=== PATIENT | female | born 1975 | race Caucasian/White ===

== ENCOUNTER 2016-08-01 07:35 | Inpatient (IN) | payer OTHER ==
[~2016-08-01] VITALS: Ht 162.6 cm; Wt 94.3 kg
[2016-08-01] MEDS ORDERED: Methylergonovine 0.2 mg/mL Inj IM PRN ×2 (07:50→15:55)
[2016-08-01] MEDS ORDERED: Carboprost 250 mCg/mL Inj IM PRN ×2 (07:50→15:55)
[2016-08-01] MEDS ORDERED: Sodium Chloride LOK Flush 10 mL Syringe IVFLUSH PRN (07:50)
[2016-08-01] MEDS ORDERED: fentaNYL-PF 50 mCg/mL 2 mL Inj IVPUSH PRN (07:50)
[2016-08-01] MEDS ORDERED: Oxytocin 30 Units/500 mL LR 30 UNITS in IV Premix 1 EACH IV PRN ×3 (07:50→15:55)
[2016-08-01] MEDS ORDERED: Hemorrhage Kit, Post Partum XX ONE ×2 (07:50→15:55)
[2016-08-01] MEDS ORDERED: Oxytocin 10 Unit/mL Inj IM PRN ×2 (07:50→15:55)
[2016-08-01] MEDS ORDERED: Ondansetron 2 mg/mL 2 mL Inj IVPUSH PRN ×2 (07:50→11:30)
[2016-08-01] MEDS: Lactated Ringer's 1,000 ML IV PRN ×2 (08:34→10:24)
[2016-08-01 08:50] LABS: Mean Corpuscular Hemoglobin 31.1 pg (27.0-35.0); Mean Corpuscular Volume 92.6 fL (81-100)
[2016-08-01] MEDS ORDERED: fentaNYL 2 mCg/mL-Bupivicaine 0.125% 100 mL Premix EPIDURAL ONE (11:03)
[2016-08-01] MEDS ORDERED: Lactated Ringer's 500 ML IV ONE (11:26)
[2016-08-01] MEDS ORDERED: Lactated Ringer's 1,000 ML IV SCH (11:26)
--- NOTE | 2016-08-01 11:26 | PCM.HPANE ---
Patient Data Surgeon Admitting Provider:Ashlyn Thurman MD Attending Provider:Ashlyn Thurman MD Primary Care Physician:Dagmar Leon MD Other Provider:Jessie Balderas Anesthesia Reason for Visit Induction INDUCTION Ht/WT & BMI Body Mass Index Allergies Coded Allergies: amoxicillin (Verified Allergy, Intermediate, Hives, 08/01/16) erythromycin base (Verified Allergy, Intermediate, Nausea,Vomiting, 08/01/16 ) Past Anesthesia History Anesthesia History: Denies:: Abnormal Airway, Anesthesia Reactions History History of ENT Problems?: No HEENT History: Denies:: Abnormal Airway Denture Type: None Teeth Condition: Within Normal Limits Hx of Heart Problems?: No Cardiovascular History: Denies:: Coronary Artery Disease Hx of Respiratory Problem?: No Respiratory History: Denies:: Asthma Hx Neurologic Problems?: No Hx of GI Problems?: No Hx of Problems?: No Female Hx: Positive for:: Currently Hx Musculoskeletal Problems?: No Hx Surgeries?: No Smoking Status: Former Smoker Stop/Bang P-Blood Pressure: treated: No B- Body Mass Index > 35 kg/m2: No A- Age over 50: No N- Neck Large Circumference: No G- Gender Male: No GRAHAM Risk Assessment: Low Risk, <3 Yes Risk Assessment Category Category 1A: Patient has history of documented sleep apnea, and HAS NOT received any narcotic, sedative or anesthesia administration during this stay. Category 1B: Patient has history of documented sleep apnea, and HAS received any narcotic , sedative or anesthesia administration during this stay Category 2: Patient has SUSPECTED Obstructive Sleep Apnea, and HAS received any narcotic , sedative or anesthesia administration during this stay. Category 3: Patient has SUSPECTED Obstructive Sleep Apnea and HAS NOT received narcotic, sedative or anesthesia administration during this stay. Category 4: Outpatient in Procedural Areas with known sleep apnea or who screen positive for High Risk via the STOP/BANG questionnaire. Exam Exam General Appearance: Alert, Oriented X3, Cooperative, No Acute Distress HEENT/AIRWAY: MP 2 Lungs: Clear to Auscultation, Normal Air Movement Heart: Exam Unremarkable, Regular Rate/Rhythm, No Murmurs/Rubs/Gallops Meds/Labs/Diagnostics Labs Test 08/01/16 08:38 White Blood Count 6.6th/mm3 (3.8-10.1) Red Blood Count 4.08mil/mm3 (3.90-5.20) Hemoglobin 12.7g/dL (12.0-15.6) Hematocrit 37.8% (35.0-46.0) Mean Corpuscular Volume 92.6fL (81-100) Mean Corpuscular Hemoglobin 31.1pg (27.0-35.0) Mean Corpuscular Hemoglobin Concent 33.6% (32.0-37.0) Red Cell Distribution Width 14.5% (12.3-15.4) Platelet Count 210bil/L (150-400) Plan Impression Patient chart reviewed, patient interviewed and anesthestic plan with risks, benefits, and alternatives discussed, and informed consent obtained. NPO per Anesth. Guidelines: Yes ASA Physical Status: ASA2 Mod Systemic Disease Anesthetic Plan: Epidural Bene/Risks/Altern/Consents: Yes HP Complete Prior to Induction: Yes Keith Malagon MD Aug 01, 2016 11:26
[2016-08-01] MEDS ORDERED: EPHEDrine Sulfate 50 mg/mL Inj IVPUSH PRN (11:30)
[2016-08-01] MEDS ORDERED: Atropine 1 mg/10 mL (Code) Syringe IVPUSH PRN (11:30)
[2016-08-01] MEDS ORDERED: fentaNYL 2 mCg/mL-Bupiv 0.125% 100 ML EPIDURAL SCH (11:30)
[2016-08-01] MEDS: Lactated Ringer's 1,000 ML IV SCH ×2 (15:51→19:14)
[2016-08-01] MEDS ORDERED: LANOlin HPA 7 Gm Ointment TOPICAL PRN (15:55)
[2016-08-01] MEDS ORDERED: Benzocaine (Dermoplast) 20% 60 Gm Spray TOPICAL PRN (15:55)
[2016-08-01] MEDS ORDERED: Witch Hazel-Glycerin Pads TOPICAL PRN (15:55)
--- NOTE | 2016-08-01 16:01 | PCM.HPOB ---
Subjective Date of Service: Aug 01, 2016 Referring Provider: Admitting Physician: Ashlyn Thurman MD Primary Care Physician: Attending Physician: Ashlyn Thurman MD History of Present History of Present Illness 40 y/o -0-0-2 at 39 weeks gestation who presented for a routine visit with elevated BP. She was complaining of contractions and her BP was mildly elevated. I discussed induction of labor for elevated BP and AMA. I have reviewed the risks of induction today and consents were signed. Her to date has been otherwise uncomplicated. Allergy Coded Allergies: amoxicillin (Verified Allergy, Intermediate, Hives, 08/01/16) erythromycin base (Verified Allergy, Intermediate, Nausea,Vomiting, 08/01/16 ) Exam Constitutional: Well-developed, Well-nourished, Normal habitus Lungs: Clear to Auscultation Heart: Exam Unremarkable Abdomen: Gravid Labs/Diagnostics Maternal Blood Type: O (Postive) Group B Strep Results: Negative Previous Infant with GBS: No Rubella: Immune Lab History: Positive for: Hx Chicken Pox OB Intrapartum Assessment/Plan Problems: (1) Gestational hypertension Plan: Admit for induction of labor. Plan for IV pitocin. Risks and alternatives have been discussed and consents signed. Status: Acute ICD Code: O13.9 Ashlyn Thurman MD Aug 01, 2016 16:00
[2016-08-01] MEDS ORDERED: Lidocaine 2% 5 mL Urojet Topical Jelly Syringe ONE (18:27)
[2016-08-01] MEDS: Ascorbic Acid 500 mg Tablet PO SCH (19:14)
--- NOTE | 2016-08-02 00:38 | OP ---
[address] [address] OPERATIVE REPORT PATIENT: VAUGHN WEEMS : 1975 MR#: [id number] ADMIT: 08/01/2016 JOB ID: [id number] DATE OF SURGERY: PREOPERATIVE DIAGNOSIS(ES): POSTOPERATIVE DIAGNOSIS(ES): DELIVERY SUMMARY: The patient is a 40-year-old at 39 weeks gestation who delivered a male per spontaneous vaginal delivery at 15:42 hours. The placenta was delivered intact with a three-vessel cord at 15:44 hours. The patient was completely dilated at 14:45 hours and began pushing immediately. The infant was delivered in a cephalic presentation without difficulty. There was no nuchal cord. Cord blood was sent. Inspection on the placenta showing it to be intact three-vessel cord. On inspection of vagina, cervix and perineum there were no cervical, vaginal or perineal lacerations appreciated. Good hemostasis was assured. SURGEON: OB at time of delivery: Ashlyn Thurman MD. ESTIMATED BLOOD LOSS: 300 mL. ANESTHESIA: Epidural. SPONGE COUNTS: Were correct x2 at the end of procedure.
[2016-08-02 07:06] LABS: Mean Corpuscular Hemoglobin 31.8 pg (27.0-35.0); Mean Corpuscular Volume 94.3 fL (81-100)
--- NOTE | 2016-08-02 07:24 | PCM.PNOBPP ---
Subjective Date of Service Aug 02, 2016 Post : Spontaneous Vaginal Delivery Visit History 40 y/o -0-0-2 at 39 weeks gestation who presented for a routine visit with elevated BP. She was complaining of contractions and her BP was mildly elevated. I discussed induction of labor for elevated BP and AMA. I have reviewed the risks of induction today and consents were signed. Her to date has been otherwise uncomplicated. Subjective No complaints today Lochia: Normal Gastrointestinal: No N/V Postop Activity: Ambulating Independently Group B Strep Results: Negative Rubella: Immune Blood Type: O (Postive) Labs Laboratory Tests 08/02/16 06:55: White Blood Count 8.7, Red Blood Count 3.18, Hemoglobin 10.1, Hematocrit 30.0, Mean Corpuscular Volume 94.3, Mean Corpuscular Hemoglobin 31.8, Mean Corpuscular Hemoglobin Concent 33.7, Red Cell Distribution Width 14.5, Platelet Count 184 Exam Vital Signs Vital Signs: VS reviewed, stable Exam Abdomen: Fundus firm Extremities: No cords General: Alert, Oriented X3, Cooperative OB Post Assessment/Plan Assessment Day 1 doing well Problems: (1) Gestational hypertension Status: Acute ICD Code: O13.9 Post plan: Continue routine post care, Anticipate discharge home today Ashlyn Thurman MD Aug 02, 2016 07:24
[2016-08-02] MEDS ORDERED: Ascorbic Acid PO (07:38)
[2016-08-02] MEDS ORDERED: FERR-74 PO (07:38)
[2016-08-02] MEDS ORDERED: IBUP800T28 PO (07:38)
[2016-08-02] MEDS ORDERED: DOCU-41 PO (07:38)
--- NOTE | 2016-08-02 07:39 | PCM.DIOB ---
Obstetrical Disch Instruction Dates of Hospitalization Date of Hospital Admission Aug 01, 2016 at 07:35 Providers Admitting Physician: Ashlyn Thurman MD Primary Care Physician: Dagmar Leon MD Attending Physician: Ashlyn Thurman MD Discharge Diagnosis Problems: (1) Gestational hypertension Status: Acute ICD Code: O13.9 Diet Discharge Diet: No restrictions Activity Discharge Activity-General: Pelvic Rest for 6 weeks, Try not to overdue, Be up and about Dressing and Incisional Care Hygiene: May shower, Perineal care, Sitz bath, Dermoplast spray, Witch Jacklyn pads, Ice Follow Up Plan Follow-up appointment: Weeks (6) Ashlyn Thurman MD Aug 02, 2016 07:39
[2016-08-02] MEDS: Ascorbic Acid 500 mg Tablet PO SCH (08:02)
[2016-08-02 10:06] VITALS: BP 102/70; PULSE 62; RESP 12
--- NOTE | 2016-08-05 21:49 | PCM.DC.OB ---
Obstetrical Discharge Summary Date of Service Aug 05, 2016 Date of hospital admission Aug 01, 2016 at 07:35 Date of Discharge: Aug 05, 2016 Providers Admitting Physician: Jayne Green MD Primary Care Physician: Dagmar Leon MD Attending Physician: Jayne Green MD Diagnosis at Time of Discharge Problems: (1) Gestational hypertension Plan: Delivered Status: Acute ICD Code: O13.9 Brief History and Physical: 40 y/o -0-0-2 at 39 weeks gestation who presented for a routine visit with elevated BP. She was complaining of contractions and her BP was mildly elevated. I discussed induction of labor for elevated BP and AMA. I have reviewed the risks of induction today and consents were signed. Her to date has been otherwise uncomplicated. Hospital Course: Uneventful ([Ascorbic Acid]) 500 MG TABLET 500 MG PO BIDWM Prescribed by: JAYNE GREEN MD Docusate Sodium (Colace) 100 Mg Capsule 100 MG PO BID Prescribed by: JAYNE GREEN MD Ferrous Sulfate (Feosol) 325 Mg Tablet 325 MG PO BIDWM Prescribed by: JAYNE GREEN MD Ibuprofen (Ibuprofen) 800 Mg Tablet 800 MG PO Q6H PRN PRN For Pain Prescribed by: JAYNE GREEN MD Discharge Activity-General: Pelvic Rest for 6 weeks, Try not to overdue, Be up and about Jayne Green MD Aug 05, 2016 21:49
== END 2016-08-02 16:03 | disposition home or self-care (01) | DRG 775 ==
LOC: FBC 07:35
PROVIDERS: ADMIT Obstetrics & Gynecology; ATTEND Obstetrics & Gynecology
PROC: 10E0XZZ Delivery of Products of Conception, External Approach (ICD-10-PCS; principal; 2016-08-01)
PROC: 3E033VJ Introduction of Other Hormone into Peripheral Vein, Percutaneous Approach (ICD-10-PCS; 2016-08-01)
DX: O13.4 Gestational [pregnancy-induced] hypertension without significant proteinuria, complicating childbirth (principal); Z3A.39 39 weeks gestation of pregnancy; Z37.0 Single live birth